=== PATIENT | male | born 1965 | race Caucasian/White ===

== ENCOUNTER → 2016-12-11 | Outpatient (CLI) | payer OTHER ==
--- NOTE | 2016-12-11 11:25 | RADIOLOGY REPORT (SQ) ---
EXAM DESCRIPTION: CERV SP 3 VIEW OR LESS COMPLETED DATE/TIME: 12/11/2016 10:43 am REASON FOR STUDY: CERVICAL RADICULOPATHY (M54.12) M54.12 RADICULOPATHY, CERVICAL REGION COMPARISON: None. NUMBER OF VIEWS: Lateral neutral, lateral flexion, lateral extension films of the cervical spine TECHNIQUE: Lateral neutral, lateral flexion, lateral extension films of the cervical spine. LIMITATIONS: None. FINDINGS: MINERALIZATION: Osteopenic ALIGNMENT: Anatomic. FLEXION/EXTENSION: No instability. VERTEBRAE: Vertebral bodies of normal height. DISCS: No significant osteophytes or sclerosis. Disc height maintained. LATERAL AND POSTERIOR ELEMENTS: Facets, lateral masses, and spinous processes without significant fin dings. HARDWARE: None in the spine. SOFT TISSUES: No masses or calcifications. Lung apices clear. OTHER: No other significant finding. IMPRESSION: No instability on flexion/extension No significant disc space loss of height. TECHNICAL DOCUMENTATION: JOB ID: [id number] [employer]- All Rights Reserved
== END ==
LOC: RAD 10:26
PROVIDERS: ATTEND Pain Medicine Interventional Pain Medicine
DX: M54.12 Radiculopathy, cervical region (principal)
CPT/HCPCS: 72040

== ENCOUNTER 2017-04-10 07:30 | Day surgery (SDC) | payer OTHER ==
--- NOTE | 2017-04-08 11:17 | HISTORY AND PHYSICAL E ---
History and Physical NAME: JORGE MACDONALD : 1965 AGE: 51Y ADMITTED: 04/10/2017 ROOM: The patient did have colonoscopy , which showed the patient has hemorrhoids. The patient did have hemorrhoids. The patient referred by [facility]. Sigmoid polyp, small to biopsy, small polyp, sigmoid, 4 mm. Biopsy came back as a serrated adenoma/polyp with external hemorrhoids. ALLERGIES: He is allergic to BAND-AIDS, ADHESIVE, LATEX. MEDICATIONS: 1. Lyrica. 2. Desyrel. Colon showing the following: Patient did have a history of serrated polyp, sigmoid, external hemorrhoids, inadequate prep. At this time, patient for followup colonoscopy with better prep. PRIMARY CARE PHYSICIAN: Lesly Ngo DO. PAST MEDICAL HISTORY: Diarrhea, constipation. SOCIAL HISTORY: Does not smoke, does not drink. PAST SURGICAL HISTORY: Left shoulder, right ankle. REVIEW OF SYSTEMS: CARDIAC: Hypertension. ENDOCRINE: Negative. GASTROINTESTINAL: Bleeding, hemorrhoids. FAMILY HISTORY: The patient's father had complication, hip replacement. Mom alive. PHYSICAL EXAMINATION: VITAL SIGNS: Blood pressure is 140/80, pulse 80, respirations 20, temp is 98. HEAD, EYES, EARS, NOSE, THROAT: Normal. ABDOMEN: Soft. NEUROLOGIC: Exam negative. CONCLUSION: Colon screening. PLAN: Colonoscopy. DICTATING PHYSICIAN: RAYSHAWN TREVIÑO M.D. [id number] PHY#: [id number] ID: [id number] JOB#: [id number] ACCT: [id number] cc:RAYSHAWN TREVIÑO M.D. >
[~2017-04-10 07:30] MED LIST: EPINEPHRINE INJ 1 MG/10 ML DISP.SYRIN ONE; FENTANYL CITRATE INJ/PF 100 MCG/2 ML AMPUL ONE; FLUMAZENIL INJ 0.5 MG/5 ML VIAL ONE; GLUCAGON,HUMAN RECOMB 1 MG INJ ONE; GLYCOPYRROLATE INJ 0.4 MG/2 ML VIAL ONE; NALOXONE HCL INJ/PF 0.4 MG/1 ML SDV ONE; ONDANSETRON HCL INJ/PF 4 MG/2 ML SDV ONE
[2017-04-10] MEDS: MIDAZOLAM 2 MG/2 ML INJ ONE ×2 (08:09→08:13)
[2017-04-10 09:24] VITALS: BP 124/84
[2017-04-10 10:23] LABS: ABSOLUTE EOSINOPHILS # (AUTO) 0.1 10^3/uL (0.0-0.6); ABSOLUTE LYMPHOCYTES (AUTO) 1.1 10^3/uL (0.5-4.7); ABSOLUTE MONOCYTES (AUTO) 0.6 10^3/uL (0.1-1.4); ABSOLUTE NEUT (AUTO) 5.6 10^3/uL (1.7-8.2); BASOPHILS % (AUTO) 0.2 % (0-2); HEMOGLOBIN 14.4 g/dL (13.5-17.0); HGB HCT DIFFERENCE 2.2; LYMPHOCYTES % (AUTO) 14.8 % (13-45); MEAN CORPUSCULAR HEMOGLOBIN 33.6 pg (27.0-33.4); MEAN CORPUSCULAR VOLUME 96 fl (80-97); MONOCYTES % (AUTO) 8.3 % (3-13); RED BLOOD COUNT 4.27 10^6/uL (4.35-5.55); SEGMENTED NEUTROPHILS % (AUTO) 75.7 % (42-78); WHITE BLOOD COUNT 7.4 10^3/uL (4.0-10.5)
--- NOTE | 2017-04-10 13:41 | DISCHARGE SUMMARY E ---
Discharge Summary NAME: JORGE MACDONALD : 1965 AGE: 51Y ADMITTED: 04/10/2017 DISCHARGED: 04/10/2017 PROCEDURE: 1. Colonoscopy. 2. Biopsy. FINAL DIAGNOSIS: Ascending colon polyp, 0.5 cm. HISTORY: The patient is 51, known to have hearing aids, sleep apnea. He uses CPAP. HOSPITAL COURSE: He underwent colonoscopy today showing benign looking polyp, sessile, mid ascending colon, prep inadequate and external hemorrhoids. DISCHARGE PLAN: 1. Soft residue diet. 2. Baseline CBC. 3. Hold aspirin and nonsteroidal. 4. Consideration followup colonoscopy 6 months to a year with better prep. DICTATING PHYSICIAN: RAYSHAWN TREVIÑO M.D. [id number] PHY#: [id number] ID: [id number] JOB#: [id number] ACCT: [id number] cc:[facility] RAYSHAWN TREVIÑO M.D. >
--- NOTE | 2017-04-10 13:42 | OPERATIVE REPORT E ---
Operative Report NAME: JORGE MACDONALD : 1965 AGE: 51Y DATE OF SURGERY: 04/10/2017 ROOM: PREOPERATIVE DIAGNOSES: 1. Colon screening. 2. Previous history of serrated polyp in the sigmoid. POSTOPERATIVE DIAGNOSIS: Sessile polyp, mid ascending colon, about 0.5 cm in size, very sessile, difficult to resect. OPERATION: Colonoscopy. SURGEON: RAYSHAWN TREVIÑO M.D. ANESTHESIA: Versed 4 mg and Fentanyl 100 mcg. TISSUE REMOVED OR ALTERED: Biopsy of sessile polyp, mid ascending colon. PROCEDURE: Rectal exam: External hemorrhoids and skin tags. Rectum and sigmoid normal. Descending colon normal. Transverse colon normal. Ascending colon shows mid ascending colon sessile polyp, 0.5 cm, possibility of serrated polyp, biopsy obtained x3. Cecum normal. There was a moderate amount of stool in the right colon and sigmoid/descending colon. Prep inadequate. PLAN: 1. Hold aspirin and nonsteroidals for 1 week. 2. Baseline CBC. 3. Consider follow-up colonoscopy after 6 months to a year pending biopsy results. 4. Patient is to see us in the office in the next few days. DICTATING PHYSICIAN: RAYSHAWN TREVIÑO M.D. [id number] [id number] Y#: [id number] ID: [id number] JOB#: [id number] ACCT: [id number] cc:[facility] RAYSHAWN TREVIÑO M.D. >
== END 2017-04-10 09:45 | disposition home or self-care (01) ==
LOC: END 07:30
PROVIDERS: ATTEND Specialist
PROC: 0DBK8ZX Excision of Ascending Colon, Via Natural or Artificial Opening Endoscopic, Diagnostic (ICD-10-PCS; principal; 2017-04-10 08:00)
DX: Z12.11 Encounter for screening for malignant neoplasm of colon (principal); D12.2 Benign neoplasm of ascending colon; Z86.010 Personal history of colon polyps; I10 Essential (primary) hypertension; Z79.899 Other long term (current) drug therapy
CPT/HCPCS: 45380; 36415; 82378; 85025; 88305 ×2; J2250; J3010; J1610; J2405; J0171; J2310; J3490

== ENCOUNTER → 2017-06-29 | Outpatient (CLI) | payer OTHER ==
--- NOTE | 2017-06-29 12:40 | RADIOLOGY REPORT (SQ) ---
EXAM DESCRIPTION: HAND LEFT 3 VIEWS COMPLETED DATE/TIME: 06/29/2017 10:47 am REASON FOR STUDY: LEFT HAND INJURY (S60.922D) S60.922D UNSPECIFIED SUPERFICIAL INJURY OF LEFT HAND, SUBS E COMPARISON: None. EXAM PARAMETERS: NUMBER OF VIEWS: Three views. TECHNIQUE: AP, lateral and oblique radiographic images acquired of the left hand. LIMITATIONS: None. FINDINGS: MINERALIZATION: Normal. BONES: No acute fracture or dislocation. No worrisome bone lesions. JOINTS: No effusions. SOFT TISSUES: No soft tissue swelling. No foreign body. OTHER: No other significant finding. IMPRESSION: NEGATIVE STUDY OF THE LEFT HAND. NO RADIOGRAPHIC EVIDENCE OF ACUTE INJURY. TECHNICAL DOCUMENTATION: JOB ID: [id number] [employer]- All Rights Reserved Reading location - IP/workstation name: [email or web address]
== END ==
LOC: RAD 10:19
PROVIDERS: ATTEND Student in an Organized Health Care Education/Training Program
DX: S60.922D Unspecified superficial injury of left hand, subsequent encounter (principal); X58.XXXD Exposure to other specified factors, subsequent encounter

== ENCOUNTER → 2017-06-30 | Outpatient (CLI) | payer OTHER ==
--- NOTE | 2017-06-30 14:36 | WOMENS IMAGING REPORT ---
EXAM DESCRIPTION: BONE DENSITY HIP/SPINE COMPLETED DATE/TIME: 06/30/2017 1:50 pm REASON FOR STUDY: OSTEOPROSIS;M81.0 M81.0 AGE-RELATED OSTEOPOROSIS W/O CURRENT PATHOLOGICAL FRAC COMPARISON: None. TECHNIQUE: Dual-Energy X-ray Absorptiometry (DEXA) of the AP Spine and Hip. LIMITATIONS: None. FINDINGS: LUMBAR SPINE: The bone mineral density (BMD) measured from L1-L4 in the AP projection correlates with a T-score of -2.4, which is osteopenia as defined by the World Health Organization. HIP: The bone mineral density (BMD) measured in the left hip correlates with a T-score of -3 in the femora l neck, which is osteoporosis as defined by the World Health Organization. IMPRESSION: 1. LUMBAR SPINE: OSTEOPENIA. 2. HIP: OSTEOPOROSIS. COMMENT: The World Health Organization defines low BMD as follows: T-score: Normal: Greater than -1.0 Osteopenia: Between -1.0 and -2.5 Osteoporosis: Less than -2.5 without fractures Established osteoporosis: Less than -2.5 with fractures In general, you may wish to consider: Diagnosis Treatment Follow-up DEXA Normal BMD Prevention 2-3 years Osteopenia Prevention/Therapy 1-2 years Osteoporosis Therapy Yearly TECHNICAL DOCUMENTATION: JOB ID: [id number] [employer]- All Rights Reserved Reading location - IP/workstation name: [email or web address]
== END ==
LOC: WI 13:32
PROVIDERS: ATTEND Student in an Organized Health Care Education/Training Program
DX: M81.0 Age-related osteoporosis without current pathological fracture (principal)
CPT/HCPCS: 77080

== ENCOUNTER → 2018-07-13 | Outpatient (CLI) | payer OTHER ==
[2018-07-14 08:44] LABS: COMPLEMENT C4 27 mg/dL (14-44)
[2018-07-14 09:10] LABS: COMPLEMENT C3 110 mg/dL (82-167)
== END ==
LOC: OD 10:18
PROVIDERS: ATTEND Student in an Organized Health Care Education/Training Program
DX: D89.9 Disorder involving the immune mechanism, unspecified (principal); R53.82 Chronic fatigue, unspecified
CPT/HCPCS: 36415; 86160

== ENCOUNTER → 2018-11-24 | Outpatient (CLI) | payer OTHER | LOC: LAB 10:25 | PROVIDERS: ATTEND Student in an Organized Health Care Education/Training Program | DX: D84.9 Immunodeficiency, unspecified (principal) | CPT/HCPCS: 36415 ==

== ENCOUNTER → 2019-03-02 | Outpatient (CLI) | payer OTHER ==
--- NOTE | 2019-03-02 12:36 | RADIOLOGY REPORT (SQ) ---
EXAM DESCRIPTION: ELBOW RIGHT OVER 2 VIEWS COMPLETED DATE/TIME: 03/02/2019 11:35 am REASON FOR STUDY: (M25.521)PAIN IN RIGHT ELBOW M25.521 PAIN IN RIGHT ELBOW COMPARISON: None. NUMBER OF VIEWS: Four views. TECHNIQUE: AP, lateral, and both oblique radiographic images acquired of the right elbow. LIMITATIONS: None. FINDINGS: MINERALIZATION: Normal. BONES: No acute fracture or dislocation. No worrisome bone lesions. JOINT: No effusion. SOFT TISSUES: Minimal soft tissue swelling posterior to the olecranon. No radiopaque foreign body. OTHER: No other significant finding. IMPRESSION: No evidence of acute bony abnormality. Minimal soft tissue swelling posterior to the olecranon, possibly related to olecranon bursitis. TECHNICAL DOCUMENTATION: JOB ID: [id number] [employer]- All Rights Reserved Reading location - IP/workstation name: [email or web address]
== END ==
LOC: RAD 11:16
PROVIDERS: ATTEND Student in an Organized Health Care Education/Training Program
DX: M25.521 Pain in right elbow (principal)

== ENCOUNTER → 2019-07-04 | Outpatient (CLI) | payer OTHER ==
--- NOTE | 2019-07-04 14:19 | WOMENS IMAGING REPORT ---
EXAM DESCRIPTION: BONE DENSITY HIP/SPINE COMPLETED DATE/TIME: 07/04/2019 1:54 pm REASON FOR STUDY: M81.0 BONE DENSITY M81.0 AGE-RELATED OSTEOPOROSIS W/O CURRENT PATHOLOGICAL FRAC COMPARISON: 06/30/2017 TECHNIQUE: Dual-Energy X-ray Absorptiometry (DEXA) of the AP Spine and Hip. LIMITATIONS: None. FINDINGS: LUMBAR SPINE: The bone mineral density (BMD) measured from L1-L4 in the AP projection correlates with a T-score of -2.2, which is osteopenia as defined by the World Health Organization. BMD Change vs Baseline: +2.4% HIP: The bone mineral density (BMD) measured in the left hip correlates with a T-score of -3.1 in the femo ral neck, which is osteoporosis as defined by the World Health Organization. BMD Change vs Baseline: -1.1% 10 year Fracture Risk Assessment: Major Osteoporotic Fracture: Not available. Hip Fracture: Not available. IMPRESSION: 1. LUMBAR SPINE WHO CLASSIFICATION: Osteopenia 2. HIP WHO CLASSIFICATION: Osteoporosis OVERALL ASSESSMENT: WHO CLASSIFICATION: Osteoporosis COMMENT: The World Health Organization defines low BMD as follows: T-score: Normal: Greater than -1.0 Osteopenia: Between -1.0 and -2.5 Osteoporosis: Less than -2.5 without fractures Established osteoporosis: Less than -2.5 with fractures In general, you may wish to consider: Diagnosis Treatment Follow-up DEXA Normal BMD Prevention 2-3 years Osteopenia Prevention/Therapy 1-2 years Osteoporosis Therapy Yearly TECHNICAL DOCUMENTATION: JOB ID: [id number] 2010 [employer]- All Rights Reserved Reading location - IP/workstation name: [email or web address]
== END ==
LOC: WI 13:40
PROVIDERS: ATTEND Student in an Organized Health Care Education/Training Program
DX: M81.0 Age-related osteoporosis without current pathological fracture (principal)
CPT/HCPCS: 77080

== ENCOUNTER → 2019-11-16 | Outpatient (CLI) | payer OTHER ==
--- NOTE | 2019-11-16 13:10 | RADIOLOGY REPORT (SQ) ---
EXAM DESCRIPTION: HIP RIGHT AP/LATERAL IMAGES COMPLETED DATE/TIME: 11/16/2019 12:21 pm REASON FOR STUDY: HIP PAIN COMPARISON: 04/12/2014 NUMBER OF VIEWS: Two views. TECHNIQUE: AP pelvis and additional frog-leg view of the right hip. LIMITATIONS: None. FINDINGS: MINERALIZATION: Normal. RIGHT HIP: No fracture or dislocation. No worrisome bone lesions. LEFT HIP: No fracture or dislocation. No worrisome bone lesions. PUBIS AND ISCHIUM: No fracture. PELVIS: No fracture. SACRUM: No fracture or dislocation. No worrisome bone lesions. LOWER LUMBAR SPINE: No fracture or dislocation. No worrisome bone lesions. No significant disc disea se. SOFT TISSUES: No findings. OTHER: No other significant finding. IMPRESSION: NEGATIVE STUDY OF THE RIGHT HIP. NO RADIOGRAPHIC EVIDENCE OF ACUTE INJURY. TECHNICAL DOCUMENTATION: JOB ID: [id number] 2010 [employer]- All Rights Reserved Reading location - IP/workstation name: [email or web address]
== END ==
LOC: RAD 12:03
PROVIDERS: ATTEND Student in an Organized Health Care Education/Training Program
DX: M25.551 Pain in right hip (principal)